=== PATIENT | female | born 1995 | race Caucasian/White ===

== ENCOUNTER 2017-12-12 02:44 | Emergency (ER) | payer BC ==
[2017-12-12] MEDS: Ketorolac 60 MG/2 ML SDV IM ONE (03:32)
[2017-12-12] MEDS: LORazepam 2 MG/ML SDV IM ONE (03:34)
[2017-12-12 05:00] VITALS: BP 112/65
--- NOTE | 2017-12-12 05:23 | ER ---
DATE SEEN: 12/12/2017 CHIEF COMPLAINT: Abdominal pain. HISTORY OF PRESENT ILLNESS: This is a 22-year-old female with 2 hours of more of abdominal pain that is nonspecific, associated with distention, and she also noted blood streaks in her stool. She complains of feeling anxious and panicky. REVIEW OF SYSTEMS: No vomiting or urinary symptoms. ALLERGIES: Hydrocodone. PAST SURGICAL HISTORY: None. PAST MEDICAL HISTORY: Headache, migraine in type; constipation; spastic colon. PHYSICAL EXAMINATION: GENERAL: Very anxious. VITAL SIGNS: Blood pressure is normal. Pulse is 95. ENT: Negative. CHEST: Clear. ABDOMEN: Slightly distended, exquisitely tender in the right lower quadrant. No rebound. There is voluntary guarding. Bowel sounds are present. LABORATORY DATA: CBC and basic profile were normal. CT abdomen was negative. Occult blood was positive in the stool. IMPRESSION: 1. Abdominal pain, nonspecific. 2. Anxiety. 3. Bright red blood per rectum. PLAN: Supportive therapy, avoidance of constipation, drink fluids. See PCP to discuss treatment or prevention of panic and anxiety attacks. /[id number] AYAN/MAGNUS
== END 2017-12-12 05:00 | disposition home or self-care (01) ==
LOC: FB.ED 02:44
DX: K62.5 Hemorrhage of anus and rectum (principal); F41.9 Anxiety disorder, unspecified; R10.31 Right lower quadrant pain; Z88.5 Allergy status to narcotic agent
CPT/HCPCS: 36415; 74176; 80053; 81001; 81025; 82150; 82270; 85025; 96372; 99284; J1885; J2060